=== PATIENT | female | born 1985 | race Caucasian/White ===

== ENCOUNTER 2024-09-08 09:16 | Emergency (ER) | payer MEDICAID, SELFPAY ==
--- NOTE | ~2024-09-08 | CT_ITS ---
EXAMINATION: CT ABDOMEN AND PELVIS WITH CONTRAST CLINICAL INFORMATION: Upper abdominal pain. COMPARISON: None available. TECHNIQUE: Multidetector volumetric images were obtained from the superior aspect of the liver through the pubic symphysis following administration 85 mL of Omnipaque 350 intravenous contrast. Sagittal and coronal reformatted images were obtained on the technologist's workstation. Oral contrast: No This CT examination was performed using dose optimization techniques as appropriate, variously including the following: *Automated exposure control *Adjustment of mA and/or kV according to patient size (this includes techniques or standardized protocols for targeted exams where dose is matched to indication/reason for exam; i.e. extremities or head) *Use of iterative reconstruction technique. DLP: 420 mGy centimeter. FINDINGS: LUNG BASES: Few scattered nonspecific less than 2.5 mm noncalcified pulmonary nodules. LIVER, GALLBLADDER, AND BILIARY TREE: Liver measures 15 cm. Focal hypodensity adjacent to the falciform ligament likely focal fatty infiltration. No focal mass. Portal veins, hepatic veins and intrahepatic portion of the IVC are patent. No intrahepatic biliary ductal dilatation. Status post cholecystectomy likely laparoscopic. Common bile duct measures 4 mm. PANCREAS: No focal lesion. No peripancreatic fluid collection. No main pancreatic ductal dilatation. SPLEEN: 8 cm. No focal lesion. ADRENAL GLANDS: No nodular lesions. KIDNEYS AND URETERS: No hydronephrosis. No gross nephrolithiasis. No gross enhancing renal mass. BLADDER: Fluid-filled. GASTROINTESTINAL TRACT: Appendix is normal. Abundant stool, right hemicolon. Collapsed appearance of the descending colon with the questionable concentric wall thickening. No intestinal obstruction pattern. No pneumatosis intestinalis. No ascites. No pneumoperitoneum. Terminal ileum demonstrates no gross intestinal wall thickening. ABDOMINAL WALL: Small fat-containing umbilical hernia. LYMPH NODES: Nonspecific mildly prominent mesenteric lymph nodes. VASCULAR: No aneurysm or dissection, abdominal aorta. Mixed plaques in the distal abdominal aorta and iliac arteries. PELVIC VISCERA: Heterogeneous enhancement of the uterus. No gross masses in the adnexa. OSSEOUS STRUCTURES: Sclerosis and the sacroiliac joints. Facet joint hypertrophy at L5-S1. Grade 1 retrolisthesis L4-5 and L5-S1 and to a lesser extent L3-4. CT/CT abdomen pelvis w IV con IMPRESSION: Small fat-containing umbilical hernia. Collapsed descending colon versus focal colitis. Fleischner guidelines were followed. Electronically signed by: Jackson Sullivan MD 09/08/2024 12:34 PM EDT RP
[2024-09-08 09:20] VITALS: BP 153/93; PULSE 82; RESP 16; TEMP 36.8; O2SAT 100; BMI 24.6
--- NOTE | 2024-09-08 09:26 | ED.ABDPAIN ---
HPI - Abdominal Pain General Chief Complaint: Abdominal Pain Stated Complaint: Gallbladder pain, blood stool, abd pain Time Seen by Provider: 09/08/24 10:24 History of Present Illness HPI narrative: this is RME note portion Related Data Previous Rx's ?Medication ?Instructions ?Recorded levothyroxine 175 mcg tablet 175 mcg PO DAILY #30 tabs 09/08/24 (Synthroid) Allergies Allergy/AdvReac Type Severity Reaction Status Date / Time No Known Allergies Allergy Verified 09/08/24 09:31 Physical Exam ED Vital Signs: Vital Signs - 24 hr 09/08/24 09:20 09/08/24 13:45 Temperature 98.3 F 98.3 F Pulse Rate 82 82 Respiratory Rate 16 16 Blood Pressure 153/93 H 145/70 H Pulse Oximetry 100 100 Oxygen Delivery Method Room Air Room Air BMI result Body Mass Index 24.6 Course Course Course Narrative: 39 yo female with PMH of opiate use disorder, anxiety, prior gallbladder and bile duct stone in 2023 s/p ERCP and cholecystectomy now here with c/o central abdominal pain, no fevers, some chills, but no n/v and has had loose stools with brb in the toilet and on the stool for 3 days. She has never had bleeding before. She is not on thinners. Has not had a colonoscopy. NO fam hx of colon cancer. She is here as well with 21 days off cold turkey high dose methadone and ativan, psychiatric medications she is doing this through a therapist. At this time will start her labs and defer CT scan imaging to primary provider this is a RAPID medical screening exam the rest of the history and physical exam is to be done by the main provider. SOHA 09/08/24 Medical Decision Making Lab Data 09/08/24 09:50 09/08/24 09:50 Labs: Lab Results 09/08/24 Range/Units 09:50 WBC 9.5 (4.8-10.8) X10*3/uL RBC 4.24 (4.20-5.50) X10*6/uL Hgb 12.9 (12.0-16.0) g/dl Hct 37.1 (37.0-47.0) % MCV 87.5 (80.0-98.0) fL MCH 30.4 (27.0-33.0) pg MCHC 34.8 (31.0-35.0) g/dl RDW 12.7 (11.0-16.0) % Plt Count 490 H (160-400) X10*3/uL MPV 8.9 L (9.4-12.3) fL Immature Gran % (Auto) 0.2 (0.0-0.4) % Neut % (Auto) 63.3 (45-73) % Lymph % (Auto) 29.4 (20-40) % Bulloch % (Auto) 5.5 (2-11) % Eos % (Auto) 1.2 (0-4) % Baso % (Auto) 0.4 (0-2) % Lymph # (Auto) 2.8 (1.2-4.9) X10*3/uL Bulloch # (Auto) 0.5 (0.1-1.2) X10*3/uL Eos # (Auto) 0.1 (0.0-0.4) X10*3/uL Baso # (Auto) 0.0 (0.0-0.2) X10*3/uL Abs Immat Gran (auto) 0.02 (0.00-0.03) X10*3/uL Absolute Neuts (auto) 6.0 (2.0-8.3) x10*3/uL Absolute Nucleated RBC 0.000 (0.0-0.012) X10*3/uL Nucleated RBC % (auto) 0.0 (0.0-0.2) /100WBC Sodium 140 (135-145) mmol/L Potassium 3.8 (3.3-5.1) mmol/L Chloride 107 (96-108) mmol/L Carbon Dioxide 24 (22-29) mmol/L Anion Gap 13 (12-20) BUN 21 H (9-16) mg/dL Creatinine 0.83 (0.5-1.4) mg/dL Estim Creat Clear Calc 82.2 Estimated GFR > 60 Random Glucose 81 (60-115) mg/dL Calcium 9.6 (8.4-10.2) mg/dL Magnesium 2.3 (1.6-2.6) mg/dL Total Bilirubin 0.2 (0.0-1.0) mg/dL Direct Bilirubin < 0.2 (0.0-0.5) mg/dL AST 21 (5-31) U/L ALT 18 (0-31) U/L Alkaline Phosphatase 57 (39-117) U/L C-Reactive Protein 0.12 (< or = 0.50) mg/dL Total Protein 7.4 (6.5-8.0) g/dL Albumin 4.8 (3.5-5.0) g/dL Lipase 103 H (8-78) U/L TSH > 100.00 H (0.32-4.0) uIU/mL Beta HCG, Quant < 2 mIU/mL Medications Administered Discontinued Medications Generic Name Dose Route Start Last Admin Trade Name Freq PRN Reason Stop Dose Admin Iohexol 85 ml 09/08/24 12:16 09/08/24 12:17 Iohexol 350 Mg/Ml 100 Ml Infus..Btl IV 09/08/24 12:17 85 ml ONCE ONE Administration Discharge Plan Discharge Clinical Impression: Abdominal pain, Hypothyroidism Patient Disposition: Home, Self-Care Instructions: Hypothyroidism (ED), Abdominal Pain (ED) Additional Instructions: Follow-up with your primary care physician your CAT scan was normal your TSH of very high make sure you take the Synthroid I sent a prescription for you to the [facility] pharmacy Prescriptions: New levothyroxine [Synthroid] 175 mcg tablet 175 mcg PO DAILY Qty: 30 0RF Referrals: Physician,Alecia J [Primary Care Provider] - 3 days Interventions: ED Discharge Assessment Last Done: 09/08/24 13:45 Discharge Date/Time: 09/08/24 13:46 Print Language: Thai
[2024-09-08 09:53] LABS: MANUAL DIFF FLAG NO
[2024-09-08 09:56] LABS: Basophils Percent Auto 0.4 % (0-2); Eosinophils Absolute Auto 0.1 X10*3/uL (0.0-0.4); Eosinophils Percent Auto 1.2 % (0-4); Hematocrit 37.1 % (37.0-47.0); Hemoglobin 12.9 g/dl (12.0-16.0); Imm Gran Abs Auto 0.02 X10*3/uL (0.00-0.03); Imm Gran Pct Auto 0.2 % (0.0-0.4); Lymphocytes Absolute Auto 2.8 X10*3/uL (1.2-4.9); Lymphocytes Percent Auto 29.4 % (20-40); Mean Corpuscular HGB Conc 34.8 g/dl (31.0-35.0); Mean Corpuscular Hemoglobin 30.4 pg (27.0-33.0); Mean Corpuscular Volume 87.5 fL (80.0-98.0); Mean Platelet Volume 8.9 fL (9.4-12.3); Monocytes Absolute Auto 0.5 X10*3/uL (0.1-1.2); Monocytes Percent Auto 5.5 % (2-11); Neutrophils Percent Auto 63.3 % (45-73); Platelet Count 490 X10*3/uL (160-400); Red Blood Count 4.24 X10*6/uL (4.20-5.50); Red Cell Distribution Width 12.7 % (11.0-16.0); White Blood Count 9.5 X10*3/uL (4.8-10.8)
[2024-09-08 10:16] LABS: Alanine Aminotransferase 18 U/L (0-31); Albumin Level 4.8 g/dL (3.5-5.0); Alkaline Phosphatase 57 U/L (39-117); Anion Gap 13 (12-20); Aspartate Amino Transferase 21 U/L (5-31); Bilirubin Direct < 0.2 mg/dL (0.0-0.5); Bilirubin Total 0.2 mg/dL (0.0-1.0); Blood Urea Nitrogen 21 mg/dL (9-16); C Reactive Protein 0.12 mg/dL (< or = 0.50); Calcium 9.6 mg/dL (8.4-10.2); Carbon Dioxide 24 mmol/L (22-29); Chloride 107 mmol/L (96-108); Creatinine Clr Calc Pharmacy 82.2; Estimated Glomerular Filt Rate > 60; Glucose Random 81 mg/dL (60-115); Lipase 103 U/L (8-78); Magnesium 2.3 mg/dL (1.6-2.6); Potassium 3.8 mmol/L (3.3-5.1); Sodium 140 mmol/L (135-145); Total Protein 7.4 g/dL (6.5-8.0)
[2024-09-08 10:17] LABS: HCG Quantitative < 2 mIU/mL
--- NOTE | 2024-09-08 10:31 | ED.ABDPAIN ---
HPI - Abdominal Pain General Chief Complaint: Abdominal Pain Stated Complaint: Gallbladder pain, blood stool, abd pain Time Seen by Provider: 09/08/24 10:24 Source: patient Mode of arrival: ambulatory Limitations: no limitations History of Present Illness HPI narrative: This is a 39 years old female presented to the emergency department with a chief complaint of upper abdominal pain for about a week. Denies any nausea or vomiting. She had appear very anxious. She stated that she stopped her methadone recently. MD elicited complaint: abdominal pain Onset (ago): week(s) (1) Pain Consistency: constant Location: epigastric and periumbilical Severity: moderate Quality: cramping Radiation: none Exacerbating factors: nothing Relieving factors: nothing Related Data Previous Rx's ?Medication ?Instructions ?Recorded levothyroxine 175 mcg tablet 175 mcg PO DAILY #30 tabs 09/08/24 (Synthroid) Allergies Allergy/AdvReac Type Severity Reaction Status Date / Time No Known Allergies Allergy Verified 09/08/24 09:31 Review of Systems Constitutional: Reports no additional constitutional complaints Cardiovascular: Reports no additional cardiovascular complaints [facility] Past Medical History [facility] Narrative: Substance abuse, anxiety status post cholecystectomy Social History Social History Smoked in Last 30 Days: No Use of substances other than those prescribed or required for medical reasons: No Advance Directives: No Advance Directives Information Provided: No Physical Exam ED Vital Signs: Vital Signs - 24 hr 09/08/24 09:20 Temperature 98.3 F Pulse Rate 82 Respiratory Rate 16 Blood Pressure 153/93 H Pulse Oximetry 100 Oxygen Delivery Method Room Air BMI result Body Mass Index 24.6 She looks well she is not toxic-appearing and pleasant in the stretcher Const General: cooperative Nutritional Appearance: average body habitus Orientation/consciousness: patient oriented x3 HENMT Head: Yes normal to inspection Ears: hearing grossly normal bilaterally General nose exam: Normal external nose present Face and sinus: Yes normal facial exam Mouth: Normal oral and palatal mucosa present Neck Neck: Yes normal visual inspection Chest Chest palpation & inspection: normal inspection of the chest Resp Effort & Inspection: normal respiratory effort Cardio Jugular venous distension: no JVD Rate: regular rate Rhythm: regular rhythm GI Inspection: Yes normal to inspection Palpation (GI): Soft to palpation, not firm and Tenderness to palpation present (GI) (Epigastric area) Percussion: Yes normal to percussion Auscultation: normal bowel sounds Skin General skin exam: no rashes or lesions noted Lesions: no lesions Rashes: no rashes Neuro General: patient oriented x3 Cranial nerves: Yes CN's II-XII intact bilaterally Course Reevaluation(s) Reevaluation #1: On re-examination she is feeling much better anticipate discharge CT scan of the abdomen and pelvis no acute pathology, labs reviewed the lipase is slightly elevated however CT scan of the abdomen and pelvis shows a normal pancreas. She is stable for discharge Time: 13:08 Reevaluation #2: TSH noted the patient states she has not taken her thyroid medication for about 2 weeks I sent a prescription to [facility] [place] pharmacy I gave a 1 month's supply until she see the primary care physician Time: 13:17 Medical Decision Making Medical Decision Making [facility] Narrative: Patient is here complaining of upper abdominal pain we will obtain labs CT and reassess Differential Diagnosis Differential Diagnoses: The differential diagnosis associated with the presentation includes Pancreatitis/peptic ulcer disease/gastritis Admission/Observation Consideration of admission/observation: Escalation of care including admission/observation considered Lab Data [facility] Lab Attestation statement: I reviewed the patient's lab results. 09/08/24 09:50 09/08/24 09:50 Labs: Lab Results 09/08/24 Range/Units 09:50 WBC 9.5 (4.8-10.8) X10*3/uL RBC 4.24 (4.20-5.50) X10*6/uL Hgb 12.9 (12.0-16.0) g/dl Hct 37.1 (37.0-47.0) % MCV 87.5 (80.0-98.0) fL MCH 30.4 (27.0-33.0) pg MCHC 34.8 (31.0-35.0) g/dl RDW 12.7 (11.0-16.0) % Plt Count 490 H (160-400) X10*3/uL MPV 8.9 L (9.4-12.3) fL Immature Gran % (Auto) 0.2 (0.0-0.4) % Neut % (Auto) 63.3 (45-73) % Lymph % (Auto) 29.4 (20-40) % Kleberg % (Auto) 5.5 (2-11) % Eos % (Auto) 1.2 (0-4) % Baso % (Auto) 0.4 (0-2) % Lymph # (Auto) 2.8 (1.2-4.9) X10*3/uL Kleberg # (Auto) 0.5 (0.1-1.2) X10*3/uL Eos # (Auto) 0.1 (0.0-0.4) X10*3/uL Baso # (Auto) 0.0 (0.0-0.2) X10*3/uL Abs Immat Gran (auto) 0.02 (0.00-0.03) X10*3/uL Absolute Neuts (auto) 6.0 (2.0-8.3) x10*3/uL Absolute Nucleated RBC 0.000 (0.0-0.012) X10*3/uL Nucleated RBC % (auto) 0.0 (0.0-0.2) /100WBC Sodium 140 (135-145) mmol/L Potassium 3.8 (3.3-5.1) mmol/L Chloride 107 (96-108) mmol/L Carbon Dioxide 24 (22-29) mmol/L Anion Gap 13 (12-20) BUN 21 H (9-16) mg/dL Creatinine 0.83 (0.5-1.4) mg/dL Estim Creat Clear Calc 82.2 Estimated GFR > 60 Random Glucose 81 (60-115) mg/dL Calcium 9.6 (8.4-10.2) mg/dL Magnesium 2.3 (1.6-2.6) mg/dL Total Bilirubin 0.2 (0.0-1.0) mg/dL Direct Bilirubin < 0.2 (0.0-0.5) mg/dL AST 21 (5-31) U/L ALT 18 (0-31) U/L Alkaline Phosphatase 57 (39-117) U/L C-Reactive Protein 0.12 (< or = 0.50) mg/dL Total Protein 7.4 (6.5-8.0) g/dL Albumin 4.8 (3.5-5.0) g/dL Lipase 103 H (8-78) U/L TSH > 100.00 H (0.32-4.0) uIU/mL Beta HCG, Quant < 2 mIU/mL Radiology Impression Discussion of test interpretation with radiology: I have reviewed the radiologist's reading. Independent Historian significative other Medications Administered Discontinued Medications Generic Name Dose Route Start Last Admin Trade Name Anushka PRN Reason Stop Dose Admin Iohexol 85 ml 09/08/24 12:16 09/08/24 12:17 Iohexol 350 Mg/Ml 100 Ml Infus..Btl IV 09/08/24 12:17 85 ml ONCE ONE Administration Discharge Plan Discharge Clinical Impression: Abdominal pain Qualifiers: Abdominal location: generalized Qualified Code(s): R10.84 - Generalized abdominal pain Hypothyroidism Qualifiers: Hypothyroidism type: unspecified Qualified Code(s): E03.9 - Hypothyroidism, unspecified Patient Disposition: Home, Self-Care Instructions: Hypothyroidism (ED), Abdominal Pain (ED) Additional Instructions: Follow-up with your primary care physician your CAT scan was normal your TSH of very high make sure you take the Synthroid I sent a prescription for you to the [facility] [place] pharmacy Prescriptions: New levothyroxine [Synthroid] 175 mcg tablet 175 mcg PO DAILY Qty: 30 0RF Referrals: Physician,Unknown J [Primary Care Provider] - 3 days Print Language: Occitan
--- OUTSIDE RECORDS SUMMARY | 2024-09-08 11:25 | XMS_ITS | Clinical Summary ---
Author Organization [facility] Address [address] [place] [address] Care Team Providers [facility] Security Officer Name Role Phone Unavailable Primary Care Provider Unavailabl e Social History Tobacco Use Types Packs/Day Years Used Date Smoking Tobacco: Never Assessed Comments Unknown Sex and Gender Information Value Date Recorded Sex Assigned at Not on file Legal Sex Female 8:53 PM EST Gender Identity Not on file Sexual Orientation Not on file Obstetrics History Plan of Treatment Health Maintenance Due Date Last Done Comments DTaP,Tdap,and Td Vaccines (1 - Tdap) 2005 Hepatitis B Vaccines (1 of 3 - 19+ 3-dose series) 2005 Cervical Cancer Screening: P ap Smear 2007 Depression Screening 04/19/2023 HIV Screening 04/19/2023 Hepatitis C Screening 04/19/2023 Social Influencers of Health Screening 04/19/2023 COVID-19 Vaccine (2023-2 5 season) 2023 Influenza Vaccine (Season Ended) 2024 HIB Vaccines Aged Out No longer eligi ble based on patient's age to complete this topic HPV Vaccines Aged Out No longer eligi ble based on patient's age to complete this topic Hepatitis A Vaccines Aged Out No long er eligible based on patient's age to complete this topic IPV Vaccines Aged Out No longer eligi ble based on patient's age to complete this topic MMR Vaccines Aged Out No longer eligi ble based on patient's age to complete this topic Meningococcal ACWY Vaccine Aged Out N o longer eligible based on patient's age to complete this topic Meningococcal B Vaccine Aged Out No l onger eligible based on patient's age to complete this topic Pneumococcal Vaccine: Pediat rics (0 to 5 Years) and At-Risk Patients (6 to 64 Years) Aged Out No longer eligible b ased on patient's age to complete this topic RSV Immunization Patients Un kristofer 20 months Aged Out No longer eligible b ased on patient's age to complete this topic Varicella Vaccines Aged Out No longer eligible based on patient's age to complete this topic
[2024-09-08 11:34] LABS: Thyroid Stimulating Hormone > 100.00 uIU/mL (0.32-4.0)
[2024-09-08] MEDS: iohexoL 350 MG/ML 100 ML INFUS..BTL 85 ML IV (12:17)
[2024-09-08 13:45] VITALS: BP 145/70; PULSE 82; RESP 16; TEMP 36.8; O2SAT 100
== END 2024-09-08 13:46 | disposition home or self-care (01) ==
PROVIDERS: Emergency Medicine; Emergency Provider Emergency Medicine
DX: R10.84 Generalized abdominal pain (principal); E03.9 Hypothyroidism, unspecified; R10.13 Epigastric pain; Z79.899 Other long term (current) drug therapy
CPT/HCPCS: 36415; 74177; 80048; 80076; 83690; 83735; 84443; 84702; 85025; 86140; 99284; Q9967

== ENCOUNTER → 2024-09-08 10:29 | Outpatient (BNV) | payer MEDICAID, SELFPAY | PROVIDERS: Emergency Provider Emergency Medicine; Visit Provider Radiology Diagnostic Radiology | DX: K42.9 Umbilical hernia without obstruction or gangrene (principal) | CPT/HCPCS: 74177 ==